=== PATIENT | male | born 1945 | race Caucasian/White ===

== ENCOUNTER 2017-01-22 07:44 | Day surgery (SDC) | payer MEDICARE ==
[2017-01-19 10:40] VITALS: BMI 24.6
--- NOTE | 2017-01-20 04:12 | HP ---
REASON FOR ADMISSION: Left heart catheterization, possible angioplasty, abnormal stress test, and history of percutaneous transluminal coronary angioplasty. BRIEFLY CLINICAL HISTORY: This is a 71-year-old male with past medical history significant for PTCA times 3. The patient initially had anterior wall HI according to the daughter who claimed that she is a physician and PTCA of LAD was done on 11/15/2011. Then, the patient later on moved to [facility] and the patient had abnormal stress test and subsequently PTCA of LAD and circumflex was done on 02/04/2013 and stage PTCA of RCA 03/06/2013. Followup stress test on 02/22/2015 was negative. Recently, the patient complained of shortness of breath and chest pain. The patient underwent stress test and echo. Stress was abnormal shows partial reversible ischemia with ejection fraction of 45%. The patient is schedule for elective cardiac cath and possible angioplasty. The patient is complaining of chest pain also. PAST MEDICAL HISTORY: Significant for rheumatoid arthritis, coronary artery, status post HI, anterior wall HI on 11/15/2011, history of PTCA of LAD circumflex on 02/04/2013 and stage PTCA of RCA on 03/06/2013. History of recently found to be diabetes, hypertension, hyperlipidemia, and rheumatoid arthritis. The patient's cardiac workup as follows: The patient recently had stress test dated 01/04/2017 - with ejection fraction 71% partially reversible defect, anterior apical, septal and inferior; all suggestive of a mild migel-infarct ischemia. The patient had echocardiography on 08/24/2016 in [place] that shows mild MR, dilated left atrium, apical hypokinesia, ejection fraction of 55%. Mild TR and RV systolic pressure of 24. Prior to that the patient had angioplasty on 11/15/2011 and history of LAD, and then in [facility], in [facility] LAD and circumflex on 02/04/2013 and then staged angioplasty of RCA on 03/06/2013. CURRENT MEDICATIONS: The patient is taking aspirin 81 mg daily, Prednisone 2.5 mg daily, multivitamins, metformin 500 mg daily, Plaquenil 200 mg b.i.d., Plavix 75 mg daily, and atorvastatin 20 mg daily. ALLERGIES: NO KNOWN DRUG ALLERGIES. REVIEW OF SYSTEMS: As per HPI. PHYSICAL EXAMINATION: As follows: VITAL SIGNS: Height of the patient is 5 feet and 7 inches, weight is 162 pounds, and body mass index is 29 kg per meter square. Heart rate is 60 and blood pressure is 130/78. HEENT: PERRLA. Extraocular muscles are intact. NECK: Supple. No carotid bruits. No thyromegaly. CHEST: Clear to auscultation. HEART: S1 and S2. Regular. ABDOMEN: Soft. EXTREMITIES: Clubbing and cyanosis negative. LABORATORY DATA: Blood work up pending. IMPRESSION: Abnormal stress test, chest pain, shortness of breath, abnormal stress ejection fraction of 47%, mild mitral regurgitation, mild tricuspid regurgitation, right ventricular systolic pressure 34, partial apical anterior and inferior defect and ischemia, history of coronary artery disease, history of coronary artery disease, history of percutaneous transluminal coronary angioplasty of left anterior descending, way back when the patient admitted with acute anterior wall myocardial infarction in [place] on 11/15/2011 and then the patient staged stent had percutaneous transluminal coronary angioplasty of left anterior descending and circumflex on 02/04/2013 and staged percutaneous transluminal coronary angioplasty of left anterior descending on 03/06/2013, diabetes, hypertension, hyperlipidemia, and rheumatoid arthritis. RECOMMENDATIONS: Cardiac catheterization, we will load aspirin and Plavix. I will follow the blood work up. Once blood work is available and found to be within normal limits, we will proceed for cardiac catheterization. Further recommendation of the catheterization. We will follow with you. Thank you Dr. Sheridan for providing the opportunity in taking care of the patient, Lalit Haddad. Matilde Spears MD
[2017-01-22 08:26] LABS: BASO # 0.05 K/mm3 (0.0-2.0); EOS # 0.2 (0.0-0.7); EOS % 4.6 % (1.5-5.0); GRAN # 2.29 (1.4-6.5); GRAN % 48.1 % (50.0-68.0); HEMATOCRIT 33.1 % (42.0-52.0); LYMPH # 1.7 (1.2-3.4); LYMPH % 35.4 % (22.0-35.0); MEAN CELL VOLUME 76.1 fl (80.0-105.0); MEAN CORPUSCULAR HEMOGLOBIN 24.4 pg (25.0-35.0); MEAN PLATELET VOLUME 9.3 fl (7.0-11.0); MONO # 0.5 (0.1-0.6); MONO % 10.9 % (1.0-6.0); RED CELL DISTRIBUTION WIDTH 16.7 % (11.5-14.5); WHITE BLOOD COUNT 4.8 10^3/ul (4.5-11.0)
[2017-01-22 08:36] LABS: INR 1.12 (0.93-1.08); PARTIAL THROMBOPLASTIN TIME 27.1 Seconds (23.7-30.8)
[2017-01-22 08:51] LABS: BLOOD UREA NITROGEN 15 mg/dL (7-21); CALCIUM 9.4 mg/dL (8.4-10.5); CARBON DIOXIDE 28 mmol/L (21-33); CHLORIDE 105 mmol/L (98-107); CHOLESTEROL 131 mg/dL (130-200); GFR AFRICAN-AMERICAN > 60; GLUCOSE,RANDOM 106 mg/dL (70-110); POTASSIUM 4.2 mmol/L (3.6-5.0); SODIUM 143 mmol/L (132-148)
[2017-01-22] MEDS ORDERED: Lidocaine 2% Inj (20ml) ONE (08:58)
[2017-01-22] MEDS ORDERED: Iodixanol 320 MG/ML 200 ML BOTTLE IV ONE (08:59)
[2017-01-22] MEDS ORDERED: Nitroglycerin 50mg in D5W 50 MG/250 ML BOTTLE IV ONE (08:59)
[2017-01-22] MEDS ORDERED: Midazolam 2 MG/2 ML VIAL ONE (09:45)
[2017-01-22] MEDS ORDERED: Adenosine 90 mg/30mL IV ONE (10:52)
[2017-01-22] MEDS ORDERED: Bacitracin 500 Units/gm Oint Foilpak UD TOP ONE (11:24)
[2017-01-22] MEDS ORDERED: Sodium Chloride 0.9% 1,000 ML IV SCH (11:30)
[2017-01-22 11:38] VITALS: TEMP 98.2
[2017-01-22] MEDS ORDERED: Bacitracin 500 Units/gm Oint Foilpak UD ONE (14:23)
[2017-01-22 14:39] VITALS: O2SAT 99
[2017-01-22 16:13] VITALS: BP 123/60; PULSE 60; RESP 17
--- NOTE | 2017-01-22 18:24 | CARD ---
APPROVED REPORT Procedure(s) performed: Left Heart Catheterization FFR on circumflex ...... 0.98 HISTORY The patient is a 71 year-old male with a history of : previous ID (> 7 days), most recent EF: 47%. (EF Method: RADIONUCLIDE), diabetes mellitus with oral treatment , previous diagnostic cath, previous PCI (The PCI date was 03/06/2013), hypertension , dyslipidemia . INDICATION The indication(s) include : positive stress test, chest pain, dyspnea. CASE TECHNIQUE The patient was brought electively to the Cardiac Catheterization Laboratory in a fasting state and was prepped and draped in a sterile manner. The left wrist was infiltrated with 2% Lidocaine subcutaneous anesthesia. A 6 Fr Glidesheath (Radial) sheath was inserted into the left radial artery without difficulty. Coronary angiography was performed using coronary diagnostic catheters. The left coronary system was accessed and visualized with a Diagnostic .5 Fr JL 3.5 catheter. The right coronary system was accessed and visualized with a Diagnostic ,5 Fr JR 3.5 catheter. The left ventricle was accessed and visualized with a 5 Fr Pigtail 145 (Angled) catheter. Left ventricular/Aortic Valve gradient assessed on pullback. Left ventriculogram was performed in URIAS projection. Closure device was deployed with a Fr TR Band (Regular) without any complications. The patient tolerated the procedure well and there were no complications associated with the procedure. Vessel Analysis The patient's coronary anatomy is right dominant. The left main coronary artery is a large size vessel with diffuse calcification noted throughout this vessel and without significant stenosis. The left main bifurcates to the left anterior descending and circumflex. The left anterior descending artery is a medium size vessel with diffuse calcification noted throughout this vessel and without significant stenosis. Patent stents in proximal and mid segment The first diagonal branch is a small size vessel with diffuse calcification noted throughout this vessel and without significant stenosis. The circumflex artery is a large size vessel with diffuse calcification noted throughout this vessel and without significant stenosis. patent stent in proximal segment There is a 50-60% stenosis in the mid segment. The first obtuse marginal branch is a small size vessel with diffuse calcification noted throughout this vessel and without significant stenosis. The right coronary artery is a medium to large size vessel with diffuse calcification noted throughout this vessel and without significant stenosis. patent stent in proximal to mid segment The right posterior descending artery is a large size vessel with diffuse calcification noted throughout this vessel and without significant stenosis. Left Ventricle The left ventricle is normal in size with normal contractility. There was no cardiomyopathy. The left ventricular ejection fraction is estimated to be 65%. The left ventricular end diastolic pressure is 15 mmHg. There was no gradient across the aortic valve upon pullback. IVUS Anticoagulation was achieved with Heparin. Fractional Flow [place] was performed on the mid circumflex artery segment vessel. A 6 Fr XB 3.5 Guide Catheter was used to engage the left main ostium. A FFR wire was used. FINDINGS FFR came to 0.98, 2 minute after infusion of Adenosine ( normal,does not require PTCA) PCI Technique Lesion Percutaneous coronary intervention was performed on the Unspecified. Conclusion Patent stents in LAD/CXS/RCA Mid CX has 50-60% stenosis , but FFR ...0.98 (Does not need PTCA). Preserved Lv Fx. EF-65%, EDP-15 Recommendations Smoking Cessation Aggressive Medical TherapyCardiac Risk Reduction Program Cc; Dr. Sheridan / Angie.
--- NOTE | 2017-01-22 20:56 | CARD ---
APPROVED REPORT EKG Measurement Heart [id number] <Conclusion> Sinus bradycardia with 1st degree AV block Right bundle branch block Left anterior fascicular block Bifascicular block Anteroseptal infarct, age undetermined Abnormal ECG
== END 2017-01-22 16:10 | disposition home or self-care (01) ==
LOC: CATH 07:44
PROVIDERS: ATTEND Internal Medicine Cardiovascular Disease
DX: I25.10 Atherosclerotic heart disease of native coronary artery without angina pectoris (principal); I44.0 Atrioventricular block, first degree; I45.10 Unspecified right bundle-branch block; R94.39 Abnormal result of other cardiovascular function study; I25.2 Old myocardial infarction; Z95.5 Presence of coronary angioplasty implant and graft; M06.9 Rheumatoid arthritis, unspecified; E11.9 Type 2 diabetes mellitus without complications; E78.5 Hyperlipidemia, unspecified; I10 Essential (primary) hypertension; I08.1 Rheumatic disorders of both mitral and tricuspid valves
CPT/HCPCS: 36415; 80048; 80061; 85025; 85610; 85730; 86850; 86900; 93005; 93458; 93571; C1769 ×2; C1887 ×2; J0153; J1644 ×2; J2250; J3010; J7040

== ENCOUNTER 2018-05-28 08:35 | Outpatient (CLI) | payer MEDICARE | END 2018-05-28 08:36 | disposition home or self-care (01) | LOC: RAD 08:35 ==